=== PATIENT | female | born 1990 | race Caucasian/White ===

== ENCOUNTER 2019-04-02 08:12 | Emergency (ER) | payer MEDICAID ==
--- NOTE | 2019-04-02 09:01 | EDM.PDOC ---
ED HPI GENERAL MEDICAL PROBLEM - General Chief Complaint: General Stated Complaint: FEVER/8WKS Time Seen by Provider: 04/02/19 08:55 Source of Information: Reports: Patient History Limitations: Reports: No Limitations - History of Present Illness INITIAL COMMENTS - FREE TEXT/NARRATIVE: Patient is a 28-year-old female who is complaining of having fever with chills this been occurring q. evening at nighttime for the last 2 days. Patient had a temperature of 101 this morning. She denies any cough or shortness of breath symptoms. She denies any nausea vomiting or diarrhea. Patient does have a mild headache but denies any dysuria or hematuria. Patient states her urine is been clear in color recently. Both of her children at home also have flulike symptoms. She is currently 8 weeks and has been taking Tylenol for symptoms. She denies any rash or stiff neck. Duration: Day(s): (Days) Location: Reports: Head, Generalized Quality: Reports: Ache Severity: Mild Improves with: Reports: None Worsens with: Reports: None Associated Symptoms: Reports: No Other Symptoms Treatments PROVIDER NETWORK MANAGER: Reports: Acetaminophen Headache Pain Score (Numeric/FACES): 4 - Related Data Allergies Allergy/AdvReac Type Severity Reaction Status Date / Time No Known Allergies Allergy Verified 04/02/19 08:26 Home Meds: Home Meds Vit Calc,Iron,Folic [ Vitamins] 1 tab PO BEDTIME 11/16/15 [ History] Past Medical History - Past Health History Medical/Surgical History: Denies Medical/Surgical History HEENT History: Reports: None Cardiovascular History: Reports: None Respiratory History: Reports: None Gastrointestinal History: Reports: Gastritis Other Gastrointestinal History: Severe nausea Genitourinary History: Reports: STD, Other (See Below) Other Genitourinary History: Herpes SALES REPRESENTATIVE GROCERIES History: Reports: Musculoskeletal History: Reports: None Neurological History: Reports: None Psychiatric History: Reports: Anxiety Endocrine/Metabolic History: Reports: None Hematologic History: Reports: None Immunologic History: Reports: None Oncologic (Cancer) History: Reports: None Dermatologic History: Reports: None - Infectious Disease History Infectious Disease History: Reports: None - Past Surgical History Head Surgeries/Procedures: Reports: None Social & Family History - Family History Family Medical History: Noncontributory - Tobacco Use Smoking Status *Q: Never Smoker Second Hand Smoke Exposure: No - Caffeine Use Caffeine Use: Reports: Coffee, Soda - Recreational Drug Use Recreational Drug Use: No ED ROS GENERAL - Review of Systems Review Of Systems: Comprehensive ROS is negative, except as noted in HPI. Constitutional: Reports: Fever, Chills ED EXAM, GENERAL - Physical Exam Exam: See Below Free Text/Narrative:: Exam: See Below Exam Limited By: No Limitations Head: Atraumatic Neck: Normal Inspection. No: Carotid Bruit, Lymphadenopathy (R) Respiratory/Chest: No Respiratory Distress, Lungs Clear, Normal Breath Sounds, No Accessory Muscle Use. No: Chest Non-Tender Cardiovascular: Normal Peripheral Pulses, Regular Rate, Rhythm, No Edema, No JVD GI/Abdominal: Normal Bowel Sounds, Tender. No: Non-Tender, Splenomegaly Back Exam: Normal Inspection. No: CVA Tenderness (R) Extremities: Normal Inspection. No: No Pedal Edema Neurological: Alert, Oriented, Normal Cognition Psychiatric: Normal Affect Skin Exam: Warm Lymphatic: No Adenopathy Course - Vital Signs Text/Narrative:: Patient is positive for influenza B. Since she is on her third day of symptoms I am not starting her on Tamiflu. I am encouraging her to increase her fluids and continue with Tylenol as needed. He should follow-up with her PCP or OB/ PHOTOGRAPHIC AIDE for recheck this week. Last Recorded V/S: Last Vital Signs Temp 36.8 C 04/02/19 08:27 Pulse 110 H 04/02/19 08:27 Resp 15 04/02/19 08:27 BP 121/78 04/02/19 08:27 Pulse Ox 96 04/02/19 08:27 Departure - Departure Time of Disposition: 09:03 Disposition: Home, Self-Care 01 Condition: Good Clinical Impression: Influenza B - Discharge Information Referrals: Yonatan Stanley MD [Primary Care Provider] - Additional Instructions: Increased fluids and Tylenol as needed. Follow-up with PCP or SALES REPRESENTATIVE GROCERIES this week for recheck. Return to ER if worse. Sepsis Event Note - Evaluation Sepsis Screening Result: No Definite Risk - Focused Exam Vital Signs: Vital Signs Temp Pulse Resp BP Pulse Ox 04/02/19 08:27 36.8 C 110 H 15 121/78 96 Date Exam was Performed: 04/02/19 Time Exam was Performed: 08:55
[2019-04-02 09:21] VITALS: BP 108/63; PULSE 96
== END 2019-04-02 09:21 | disposition home or self-care (01) ==
LOC: MW.ED 08:12
DX: O99.511 Diseases of the respiratory system complicating pregnancy, first trimester (principal); J10.1 Influenza due to other identified influenza virus with other respiratory manifestations; Z3A.08 8 weeks gestation of pregnancy
CPT/HCPCS: 87804; 99282; 99284

== ENCOUNTER 2019-05-02 10:02 | Day surgery (SDC) | payer MEDICAID ==
[~2019-05-02 10:02] MED LIST: Lactated Ringers 1,000 ML IV SCH; Sodium Chloride 0.9% 10 ML SDV IV PRN; Sodium Chloride 0.9% 10 ML Syringe FLUSH PRN; Sodium Chloride 0.9% 2.5 ML Syringe FLUSH PRN
--- NOTE | 2019-05-02 10:37 | PCM.PREANE ---
Preanesthetic Assessment - Anesthesia/Transfusion/Family Hx Anesthesia History: Prior Anesthesia Without Reaction Family History of Anesthesia Reaction: No Transfusion History: No Prior Transfusion(s) Intubation History: Unknown - Review of Systems General: No Symptoms Pulmonary: No Symptoms Cardiovascular: No Symptoms Gastrointestinal: No Symptoms Neurological: No Symptoms Other: Reports: None - Physical Assessment Vital Signs: Last Vital Signs Temp 36.8 C 05/02/19 10:15 Pulse 79 05/02/19 10:15 Resp 15 05/02/19 10:15 BP 116/62 05/02/19 10:15 Pulse Ox 97 05/02/19 10:15 Height: 5 ft 4 in Weight: 63.957 kg ASA Class: 2 Mental Status: Alert & Oriented x3 Airway Class: Mallampati = 2 Dentition: Reports: Normal Dentition (lower retainer) Thyro-Mental Finger Breadths: 3 Mouth Opening Finger Breadths: 2 ROM/Head Extension: Full Lungs: Clear to Auscultation, Normal Respiratory Effort Cardiovascular: Regular Rate, Regular Rhythm - Lab Values: Laboratory Last Values Hgb 12.6 g/dL (12.0-16.0) 05/01/19 15:34 Hct 38.1 % (36.0-46.0) 05/01/19 15:34 Blood Type A POSITIVE 05/01/19 15:34 Antibody Screen NEGATIVE 05/01/19 15:34 - Allergies Allergies/Adverse Reactions: Allergies Allergy/AdvReac Type Severity Reaction Status Date / Time No Known Allergies Allergy Verified 04/28/19 09:40 - Blood Blood Available: No - Anesthesia Plan Pre-Op Medication Ordered: None - Acknowledgements Anesthesia Type Planned: General Anesthesia Pt an Appropriate Candidate for the Planned Anesthesia: Yes Alternatives and Risks of Anesthesia Discussed w Pt/Guardian: Yes Pt/Guardian Understands and Agrees with Anesthesia Plan: Yes PreAnesthesia Questionnaire - Past Health History Medical/Surgical History: Denies Medical/Surgical History HEENT History: Reports: Other (See Below) Other HEENT History: wears glasses/contacts, has "part" of a plastic retainer in her mouth Cardiovascular History: Reports: None Respiratory History: Reports: Other (See Below) Other Respiratory History: recent Influenza B Gastrointestinal History: Reports: Gastritis Other Gastrointestinal History: Severe nausea Genitourinary History: Reports: STD, Other (See Below) Other Genitourinary History: Herpes PHARMACOVIGILANCE SCIENTIST History: Reports: Musculoskeletal History: Reports: None Neurological History: Reports: Other (See Below) Other Neuro History: hx of motion sickness Psychiatric History: Reports: Anxiety, Depression Other Psychiatric History: not currently taking medication Endocrine/Metabolic History: Reports: None Hematologic History: Reports: None Immunologic History: Reports: None Oncologic (Cancer) History: Reports: None Dermatologic History: Reports: None - Infectious Disease History Infectious Disease History: Reports: None - Past Surgical History Head Surgeries/Procedures: Reports: None HEENT Surgical History: Reports: Oral Surgery Female Surgical History: Reports: Section (11/07), Cervical Cryotherapy () - SUBSTANCE USE Smoking Status *Q: Never Smoker Recreational Drug Use History: No - HOME MEDS Home Medications: Home Meds Vit Calc,Iron,Folic [ Vitamins] 1 tab PO BEDTIME 11/16/15 [ History] - CURRENT (IN HOUSE) MEDS Current Meds: Current Medications Lactated Ringer's (Ringers, Lactated) 1,000 mls @ 125 mls/hr IV ASDIRECTED DOMINICK Sodium Chloride (Saline Flush) 10 ml FLUSH ASDIRECTED PRN PRN Reason: Keep Vein Open Sodium Chloride (Saline Flush) 2.5 ml FLUSH ASDIRECTED PRN PRN Reason: Keep Vein Open Sodium Chloride (Normal Saline) 10 ml IV ASDIRECTED PRN PRN Reason: IV Use
--- NOTE | 2019-05-02 12:58 | PCM.OPNOTE ---
- General Post-Op/Procedure Note Date of Surgery/Procedure: 05/02/19 Operative Procedure(s): suction D&C Findings: uterus sounded to 8 cm, firm preop and postop. Scant tissue obtained Pre Op Diagnosis: incomplete spontaneous Post-Op Diagnosis: Same Anesthesia Technique: General LMA Primary Surgeon: Veronica Romero Anesthesia Provider: Katherine Jon Oxyacetylene Burner: Yuri Samuels Pathology: products of conception Fluid Replacement, Intraop: 1,000 EBL in mLs: 50 Complications: None Known Condition: Good
[2019-05-02] MEDS ORDERED: fentaNYL 100 MCG/2 ML SDV IVPUSH PRN (13:08)
--- NOTE | 2019-05-02 13:28 | PCM.POSTAN ---
POST ANESTHESIA ASSESSMENT - MENTAL STATUS Mental Status: Alert, Oriented - VITAL SIGNS Vital Signs: Last Vital Signs Temp 36.2 C 05/02/19 13:00 Pulse 86 05/02/19 13:20 Resp 15 05/02/19 13:20 BP 101/57 L 05/02/19 13:20 Pulse Ox 97 05/02/19 13:20 - RESPIRATORY Respiratory Status: Respiratory Rate WNL, Airway Patent, O2 Saturation Stable - CARDIOVASCULAR CV Status: Pulse Rate WNL, Blood Pressure Stable - GASTROINTESTINAL GI Status: No Symptoms - PAIN Pain Score: 0 - POST OP HYDRATION Hydration Status: Adequate & Stable - OBSERVATIONS Free Text/Narrative:: No anesthesia problems
--- NOTE | 2019-05-02 14:07 | PCM48HPAN ---
Post Anesthesia Note - EVALUATION WITHIN 48HRS OF ANESTHETIC Vital Signs in Normal Range: Yes Patient Participated in Evaluation: Yes Respiratory Function Stable: Yes Airway Patent: Yes Cardiovascular Function Stable: Yes Hydration Status Stable: Yes Pain Control Satisfactory: Yes Nausea and Vomiting Control Satisfactory: Yes Mental Status Recovered: Yes Vital Signs: Last Vital Signs Temp 36.2 C 05/02/19 13:00 Pulse 86 05/02/19 13:20 Resp 15 05/02/19 13:20 BP 101/57 L 05/02/19 13:20 Pulse Ox 97 05/02/19 13:20 - COMMENTS/OBSERVATIONS Free Text/Narrative:: No anesthesia problems
[2019-05-02 14:09] VITALS: BP 114/67; PULSE 77
--- NOTE | 2019-05-02 18:10 | OR ---
SURGEON: Veronica Romero M.D. DATE OF PROCEDURE: 05/02/2019 PREOPERATIVE DIAGNOSIS: Incomplete spontaneous . POSTOPERATIVE DIAGNOSIS: Incomplete spontaneous . PROCEDURE: Suction dilatation and curettage. PRIMARY SURGEON: Veronica Romero MD. ANESTHESIA: General LMA. ESTIMATED BLOOD LOSS: 50 mL. FLUIDS: 1000 mL of crystalloid. FINDINGS: Preoperatively, uterus anteverted, 8-week size, sounds to 8 cm. Postoperatively, same. PATHOLOGY SPECIMEN: Products of conception. COMPLICATIONS: None known. DISPOSITION: Stable to Recovery. BRIEF HISTORY: This is a 28-year-old female. She has had a falling hCG with intermittent bleeding and cramping. She has been given Cytotec in the past. However, ultrasound shows retained products of conception, a small amount. Also, hCG level is not falling as rapidly as anticipated. Therefore, after expectant management for D and C followed by Cytotec with retained products of conception, she does desire to proceed with suction D and C with risks discussed including bleeding, infection, uterine perforation with injury to surrounding organs, risk of Asherman syndrome. Understanding all these risks, she does desire to proceed. DESCRIPTION OF PROCEDURE: With the patient in dorsal lithotomy position under adequate general endotracheal anesthesia, the perineum and vagina were prepped with Betadine and draped in the usual fashion for vaginal surgery. SCDs were in place. The bladder had been drained with a red Johnson catheter. An appropriate time-out was held. Bimanual examination was performed with findings as noted above. Speculum was placed in the vagina. The anterior lip of the cervix was grasped with an Allis clamp. The uterus was sounded to 8 cm. The cervix was dilated to an 8 mm Hegar dilator and an 8 mm straight suction curette was placed to the uterine fundus and repetitively with continuous turning retracted from the fundus. On initial pass, there was a small amount of tissue obtained. After that, no further tissue was obtained. Sharp curettage was then performed to the 12, 3, and 6 o'clock position. There was good uterine cry on all surfaces. No tissue was obtained with the curette. Additional passes were taken with the suction cannula with no further tissue and minimal bleeding. Final sponge, needle, and instrument counts were reported as correct. All the instruments had been removed from the vagina, and the patient was transferred to Recovery in good condition. DRAGAN / SAPPHIRE /[id number]
== END 2019-05-02 14:10 | disposition home or self-care (01) ==
LOC: MW.SDS 10:02
PROVIDERS: ATTEND Obstetrics & Gynecology
DX: O03.4 Incomplete spontaneous abortion without complication (principal); F32.9 Major depressive disorder, single episode, unspecified
CPT/HCPCS: 36415; 59812; 85014; 85018; 86850; 86900; 86901; 88305; J7120; 01965

== ENCOUNTER 2020-03-08 13:02 | Inpatient (IN) | payer MEDICAID ==
[2020-03-08] MEDS ORDERED: Citric Acid/Sodium Citrate Solution 30 ML Cup PO ONE (13:27)
[2020-03-08] MEDS ORDERED: Sodium Chloride 0.9% 10 ML SDV IV PRN (13:27)
[2020-03-08] MEDS ORDERED: Sodium Chloride 0.9% 2.5 ML Syringe FLUSH PRN (13:27)
[2020-03-08] MEDS ORDERED: ceFAZolin 2 GM in Premix Bag 1 BAG IV ONE (13:27)
[2020-03-08] MEDS ORDERED: Sodium Chloride 0.9% 10 ML Syringe FLUSH PRN (13:27)
[2020-03-08] MEDS ORDERED: Oxytocin/0.9 % Sodium Chloride 30 UNIT/500 ML BAG IV SCH (13:30)
[2020-03-08] MEDS: Lactated Ringers 1,000 ML IV SCH ×4 (13:30→23:23)
[2020-03-08] MEDS ORDERED: Oxytocin 10 Units/1 ML SDV ONE (14:46)
[2020-03-08] MEDS ORDERED: Phenylephrine 1% 10 MG/ML SDV ONE (14:46)
[2020-03-08] MEDS ORDERED: Ondansetron 4 MG/2 ML SDV ONE (14:46)
[2020-03-08] MEDS ORDERED: Morphine PF 10 MG/10 ML SDV ONE (14:46)
[2020-03-08] MEDS ORDERED: Ketorolac 30 MG/ML SDV ONE (14:46)
[2020-03-08] MEDS ORDERED: Acetaminophen/oxyCODONE 325-5 MG Tab PO PRN ×2 (15:35→16:47)
[2020-03-08] MEDS ORDERED: diphenhydrAMINE 50 MG/ML SDV IVPUSH PRN ×2 (15:35→16:47)
[2020-03-08] MEDS ORDERED: Naloxone 0.4 MG/ML Syringe IVPUSH PRN (15:35)
[2020-03-08] MEDS ORDERED: fentaNYL 100 MCG/2 ML SDV IVPUSH PRN (15:35)
[2020-03-08] MEDS ORDERED: Ondansetron 4 MG/2 ML SDV IVPUSH PRN (15:35)
[2020-03-08] MEDS ORDERED: Octyl 2-Cyanoacrylate 1 Tube ONE (15:45)
[2020-03-08] MEDS ORDERED: Methylergonovine 0.2 MG/1 ML Amp IM PRN (16:47)
[2020-03-08] MEDS ORDERED: Misoprostol 200 MCG Tab RECTAL PRN (16:47)
[2020-03-08] MEDS ORDERED: Bisacodyl 10 MG Supp RECTAL PRN (16:47)
[2020-03-08] MEDS ORDERED: Tranexamic Acid 1,000 MG in Sodium Chloride 0.9% 100 ML IV PRN (16:47)
[2020-03-08] MEDS ORDERED: Oxytocin 10 Units/1 ML SDV IM PRN (16:47)
[2020-03-08] MEDS ORDERED: Lanolin 100% Cream 7 GM Tube TOP PRN (16:47)
--- NOTE | 2020-03-08 16:51 | PCM.OPNOTE ---
- General Post-Op/Procedure Note Date of Surgery/Procedure: 03/08/20 Operative Procedure(s): repeat low transverse Findings: Liveborn male 8/8 weight, normal pelvis. Pre Op Diagnosis: 40 weeks, previously , declines VTOL, positive Covid by PCR Post-Op Diagnosis: Same Anesthesia Technique: Spinal Primary Surgeon: Veronica Romero Anesthesia Provider: Lashon Palmer Economic Adviser: Abiodun Milner Pathology: none Fluid Replacement, Intraop: 900 EBL in mLs: 500 Complications: None Known. Condition: Good Free Text/Narrative:: Intake & Output 03/08/20 03/08/20 03/08/20 06:59 14:59 22:59 Output Total 150 Balance -150
[2020-03-08] MEDS ORDERED: Oxytocin/Lactated Ringers 30 UNIT/500 ML BAG IV SCH (17:00)
--- NOTE | 2020-03-08 17:33 | OR ---
SURGEON: Veronica Romero M.D. DATE OF PROCEDURE: 03/08/2020 PREOPERATIVE DIAGNOSES: A 40 plus week intrauterine , prior delivery, and declines vaginal trial of labor. POSTOPERATIVE DIAGNOSES: A 40 plus week intrauterine , prior delivery, and declines vaginal trial of labor. PROCEDURE: Repeat low transverse section. ANESTHESIA: Spinal. ESTIMATED BLOOD LOSS: 500 mL. FLUIDS: 900 mL of crystalloid. FINDINGS: Liveborn male, scores of 8 and 8. Weight is pending at the time of dictation. Normal-appearing uterus, tubes, and ovaries. COMPLICATIONS: None known. DISPOSITION: Mother and baby are in LDR in good condition. BRIEF HISTORY: This is a 29-year-old female. She is G3, P2. She has had prior complicated pregnancies. First complicated by vaginal delivery with the baby with herpes encephalitis. Second was an urgent due to distress, and she now presented with her third desiring vaginal trial of labor. However, her prior 2 deliveries were at 37 weeks and both babies were under 7 pounds. She has had prodromal labor symptoms, has presented to Labor and Delivery approximately 4 times. She has progressed to 3 cm and despite presenting routinely for painful contractions, she has not progressed beyond 3 cm. The head is not engaged in the pelvis and she is occiput posterior. After discussion of options at this point, she does desire to proceed with a repeat low transverse section with risks discussed including bleeding; infection; injury to bowel, bladder, blood vessels, or other organs; risk of thromboembolic event; and risk of anesthesia. Understanding all these risks, she does desire to proceed. DESCRIPTION OF PROCEDURE: With the patient in left tilt position, under adequate spinal analgesia, the abdomen was prepped with chlorhexidine and draped in usual fashion for abdominal surgery. SCDs were in place. Wayne catheter had been placed, and an appropriate time-out was held. She received 2 g of Ancef IV. After documentation of adequate analgesia, the prior cicatrix was excised. The incision was carried through the subcutaneous tissue to the fascia, which was scored transversely in the midline. The fascial incision was extended laterally using curved Gamble scissors. The fascia was elevated from the underlying rectus muscle using sharp and blunt dissection. The rectus muscles were bluntly in the midline. A finger was placed into the peritoneal cavity. There were no adhesions anteriorly. The incision was extended with blunt dissection. The Etienne O retractor was placed. The visceral peritoneum over the lower uterine segment was incised, and an adequate bladder flap was developed. A transverse curvilinear incision was made over the lower uterine segment with a scalpel. A finger was used to enter the amniotic cavity. Clear fluid was noted. The incision was extended transversely using cephalad and caudad traction. The head was delivered via the uterine incision with subsequent delivery of the 's shoulders and body without any difficulty. The infant was bulb suctioned by nose and mouth, and after one minute, the cord was doubly clamped and cut. The was a liveborn male, scores of 8 and 8, and weight is pending. The was given to the nurse in attendance at delivery. Cord blood was collected for cord ABGs as well as routine cord blood sampling. Pitocin was initiated after delivery of the to assist with delivery of the placenta and uterine contraction. The placenta was removed by manual extraction. The uterus was cleaned with a dry laparotomy tape. The uterine incision was closed with a running locked suture of 0 Polysorb followed by an imbricating layer of 0 Polysorb. The paracolic gutters were cleaned as well as posterior cul-de-sac. Tubes and ovaries were inspected and were normal. The incision was inspected and was hemostatic. The Etienne O retractor was removed. Final inspection of the incision confirmed hemostasis. The rectus muscles were loosely approximated in the midline using a running mattress suture of 0 Polysorb. Posterior aspect of the fascia was inspected, it was hemostatic. The fascial incision was closed with a running suture of 0 Polysorb. Subcutaneous tissue was irrigated. Any areas of bleeding that were noted were cauterized. The skin was closed with a running subcuticular suture of 3-0 Monocryl followed by Dermabond. Final sponge, needle, and instrument counts were reported as correct. There were no complications. Patient and baby were transferred to Recovery in good condition. DRAGAN / SAPPHIRE /[id number]
[2020-03-08] MEDS: Nalbuphine 10 MG/1 ML Vial IVPUSH PRN ×2 (17:51→22:06)
[2020-03-08] MEDS: Ondansetron 4 MG/2 ML SDV IVPUSH PRN ×2 (18:05→22:06)
[2020-03-08] MEDS: Ketorolac 30 MG/ML SDV IVPUSH SCH (22:05)
[2020-03-08] MEDS: Docusate Sodium 100 MG Cap PO SCH (22:05)
[2020-03-09] MEDS: Ketorolac 30 MG/ML SDV IVPUSH SCH ×3 (04:04→16:39)
[2020-03-09] MEDS: Nalbuphine 10 MG/1 ML Vial IVPUSH PRN ×2 (08:44→15:03)
[2020-03-09] MEDS: Docusate Sodium 100 MG Cap PO SCH ×2 (08:44→21:26)
--- NOTE | 2020-03-09 09:22 | PCM.PNPP ---
- General Info Date of Service: 03/09/20 Admission Dx/Problem (Free Text): , repeat lower transverse section Subjective Update: Patient resting comfortably in bed. Ambulating and voiding without difficulty. Has noted increased nausea this AM, requesting antiemetic. Has tolerate PO diet overall. Pain well controlled. Scant vaginal bleeding. and pumping, awaiting milk supply. Denies fever/chills, SOA, CP or cough. - General Info Date of Service: 03/09/20 - Patient Data Vital Signs - Most Recent: Last Vital Signs Temp 99.5 F 03/09/20 04:00 Pulse 91 03/09/20 06:51 Resp 16 03/09/20 06:51 BP 138/66 03/09/20 04:00 Pulse Ox 93 L 03/09/20 06:51 Weight - Most Recent: 179 lb I&O - Last 24 Hours: Intake & Output 03/08/20 03/09/20 03/09/20 22:59 06:59 14:59 Intake Total 900 Output Total 300 1425 Balance 600 -1425 Lab Results - Last 24 Hours: Laboratory Results - last 24 hr 03/08/20 03/08/20 03/09/20 Range/Units 14:15 14:15 06:15 WBC 9.16 (4.0-11.0) K/uL RBC 3.39 L (4.30-5.90) M/uL Hgb 10.7 L 10.1 L (12.0-16.0) g/dL Hct 32.3 L 30.6 L (36.0-46.0) % MCV 95.3 (80.0-98.0) fL MCH 31.6 (27.0-32.0) pg MCHC 33.1 (31.0-37.0) g/dL RDW Std Deviation 52.6 (28.0-62.0) fl RDW Coeff of Olesya 15 (11.0-15.0) % Plt Count 185 (150-400) K/uL MPV 9.40 (7.40-12.00) fL Nucleated RBC % 0.0 /100WBC Nucleated RBCs # 0 K/uL Blood Type A POSITIVE Antibody Screen NEGATIVE Med Orders - Current: Current Medications Bisacodyl (Dulcolax) 10 mg RECTAL ONETIME PRN PRN Reason: Constipation Diphenhydramine HCl (Benadryl) 25 mg IVPUSH Q4H PRN PRN Reason: Itching Stop: 03/09/20 15:35 Diphenhydramine HCl (Benadryl) 25 mg IVPUSH Q6H PRN PRN Reason: Itching or Nausea Docusate Sodium (Colace) 100 mg PO BID [facility] Last Admin: 03/09/20 08:44 Dose: 100 mg Documented by: Emollient Ointment (Lansinoh Hpa) 0 gm TOP ASDIRECTED PRN PRN Reason: Sore Nipples Fentanyl (Sublimaze) 50 mcg IVPUSH Q1H PRN PRN Reason: Pain (severe 7-10) Lactated Ringer's (Ringers, Lactated) 1,000 mls @ 125 mls/hr IV ASDIRECTED [facility] Last Admin: 03/08/20 23:23 Dose: 125 mls/hr Documented by: Oxytocin/Lactated Ringer's (Pitocin In Lr 30 Units/500 Ml) 30 unit in 500 mls @ 999 mls/hr IV TITRATE [facility]; Protocol Tranexamic Acid 1,000 mg/ (Sodium Chloride) 110 mls @ 660 mls/hr IV ONETIME PRN PRN Reason: Bleeding Ibuprofen (Motrin) 800 mg PO Q8H PRN PRN Reason: mild pain or fever Ketorolac Tromethamine (Toradol) 30 mg IVPUSH Q6H [facility] Stop: 03/09/20 17:01 Last Admin: 03/09/20 04:04 Dose: 30 mg Documented by: Methylergonovine Maleate (Methergine) 0.2 mg IM ONETIME PRN PRN Reason: Excessive Vaginal Bleeding Misoprostol (Cytotec) 1,000 mcg RECTAL ONETIME PRN PRN Reason: excessive bleeding Nalbuphine HCl (Nubain) 5 mg IVPUSH ASDIRECTED PRN PRN Reason: Itching Last Admin: 03/09/20 08:44 Dose: 5 mg Documented by: Naloxone HCl (Narcan) 0.1 mg IVPUSH ONETIME PRN PRN Reason: Respiratory Depression Stop: 03/09/20 15:35 Ondansetron HCl (Zofran) 4 mg IVPUSH Q6H PRN PRN Reason: Nausea Ondansetron HCl (Zofran) 4 mg IVPUSH Q4H PRN PRN Reason: Nausea/Vomiting Last Admin: 03/08/20 22:06 Dose: 4 mg Documented by: Oxycodone/Acetaminophen (Percocet 325-5 Mg) 2 tab PO Q6H PRN PRN Reason: Pain (moderate 4-6) Oxycodone/Acetaminophen (Percocet 325-5 Mg) 1 tab PO Q4H PRN PRN Reason: Pain (moderate 4-6) Oxycodone/Acetaminophen (Percocet 325-5 Mg) 2 tab PO Q4H PRN PRN Reason: Pain (moderate 4-6) Oxytocin (Pitocin) 10 unit IM ASDIRECTED PRN PRN Reason: Excessive Vaginal Bleeding Discontinued Medications Citric Acid/Sodium Citrate (Bicitra Solution) 30 ml PO ONETIME ONE Stop: 03/08/20 13:28 Oxytocin/Sodium Chloride (Oxytocin 30 Unit/500 Ml-Ns) 30 unit in 500 mls @ 250 mls/hr IV TITRATE [facility] Cefazolin Sodium/Dextrose 2 gm (/ Premix) 50 mls @ 100 mls/hr IV ONETIME ONE Stop: 03/08/20 13:56 Lactated Ringer's (Ringers, Lactated) 1,000 mls @ 500 mls/hr IV BOLUS DOMINICK Last Admin: 03/08/20 14:45 Dose: 999 mls/hr Documented by: Ketorolac Tromethamine (Toradol) Confirm Administered Dose 30 mg .ROUTE .STK-MED ONE Stop: 03/08/20 14:47 Morphine Sulfate (Duramorph Pf) Confirm Administered Dose 10 mg .ROUTE .STK-MED ONE Stop: 03/08/20 14:47 Octyl Cyanoacrylate (Dermabond Advance) Confirm Administered Dose 1 applic .ROUTE .STK-MED ONE Stop: 03/08/20 15:46 Ondansetron HCl (Zofran) Confirm Administered Dose 4 mg .ROUTE .STK-MED ONE Stop: 03/08/20 14:47 Oxytocin (Pitocin) Confirm Administered Dose 20 unit .ROUTE .STK-MED ONE Stop: 03/08/20 14:47 Phenylephrine HCl (Kameron-Synephrine) Confirm Administered Dose 10 mg .ROUTE .STK- MED ONE Stop: 03/08/20 14:47 Sodium Chloride (Saline Flush) 10 ml FLUSH ASDIRECTED PRN PRN Reason: Keep Vein Open Sodium Chloride (Saline Flush) 2.5 ml FLUSH ASDIRECTED PRN PRN Reason: Keep Vein Open Sodium Chloride (Normal Saline) 10 ml IV ASDIRECTED PRN PRN Reason: IV Use - Interaction Disposition, : [place] in Room with Family Infant Interaction: Holding Infant Infant Feeding: Attempted ; Nursed Fair/Poor, Other (see below) (pumping) Support Person: Significant Other - Recovery Exam Fundal Tone: Firm Fundal Level: 1 Fingerbreadths Below Umbilicus Fundal Placement: Midline Lochia Amount: Scant Lochia Color: Rubra/Red Perineum Description: Intact, Minimal Bruising/Swelling - Exam General: Alert Lungs: Normal Respiratory Effort Cardiovascular: Regular Rate GI/Abdominal Exam: Soft, Non-Tender Extremities: Normal Inspection, Non-Tender, Pedal Edema (trace) Skin: Warm, Dry, Intact Wound/Incisions: Dressing Dry and Intact Neurological: No New Focal Deficit Psy/Mental Status: Normal Mood - Problem List Review Problem List Initiated/Reviewed/Updated: Yes - Assessment Assessment:: 29 year old G3 now P3 female POD #1 s/p repeat lower transverse section - Plan Plan:: Routine /postoperative cares * VSS, afebrile * Urine output adequate overnight, price discontinued this Am * Encourage fluid intake and ambulation today * Zofran 4mg PRN nausea * Regular diet as tolerated * , nursing assisted as needed COVID-19 positive * VSS, afebrile * Asymptomatic * Will continue to monitor symptoms closely while inpatient * Droplet precautions Dispo: stable. Continue cares today. Anticipate discharge POD 2 or 3.
--- NOTE | 2020-03-09 09:41 | PCM48HPAN ---
Post Anesthesia Note - EVALUATION WITHIN 48HRS OF ANESTHETIC Vital Signs in Normal Range: Yes Patient Participated in Evaluation: Yes Respiratory Function Stable: Yes Airway Patent: Yes Cardiovascular Function Stable: Yes Hydration Status Stable: Yes Pain Control Satisfactory: Yes Nausea and Vomiting Control Satisfactory: Yes Mental Status Recovered: Yes Vital Signs: Last Vital Signs Temp 36.6 C 03/09/20 08:30 Pulse 97 03/09/20 09:00 Resp 16 03/09/20 09:00 BP 113/74 03/09/20 08:30 Pulse Ox 100 03/09/20 09:00
[2020-03-09] MEDS: Ondansetron 4 MG/2 ML SDV IVPUSH PRN (10:18)
[2020-03-09] MEDS ORDERED: Ibuprofen 800 MG Tab PO PRN (23:00)
[2020-03-10] MEDS: Acetaminophen/oxyCODONE 325-5 MG Tab PO PRN ×2 (02:03→10:04)
[2020-03-10 09:01] VITALS: BP 121/76; PULSE 84
--- NOTE | 2020-03-10 09:49 | PCM.PNPP ---
- General Info Date of Service: 03/10/20 Admission Dx/Problem (Free Text): , repeat lower transverse section Subjective Update: Patient ambulating about room during rounds, plans to shower this morning. Ambulating and voiding without difficulty. Has tolerate PO diet overall, nausea resolved. Pain well controlled. Scant vaginal bleeding. and pumping, going well. Denies fever/chills, SOA, CP or cough. - General Info Date of Service: 03/10/20 - Patient Data Vital Signs - Most Recent: Last Vital Signs Temp 97.6 F 03/10/20 07:45 Pulse 84 03/10/20 07:45 Resp 14 03/10/20 07:45 BP 121/76 03/10/20 07:45 Pulse Ox 96 03/10/20 07:45 Weight - Most Recent: 179 lb Med Orders - Current: Current Medications Bisacodyl (Dulcolax) 10 mg RECTAL ONETIME PRN PRN Reason: Constipation Diphenhydramine HCl (Benadryl) 25 mg IVPUSH Q6H PRN PRN Reason: Itching or Nausea Docusate Sodium (Colace) 100 mg PO BID [facility] Last Admin: 03/09/20 21:26 Dose: 100 mg Documented by: Emollient Ointment (Lansinoh Hpa) 0 gm TOP ASDIRECTED PRN PRN Reason: Sore Nipples Fentanyl (Sublimaze) 50 mcg IVPUSH Q1H PRN PRN Reason: Pain (severe 7-10) Lactated Ringer's (Ringers, Lactated) 1,000 mls @ 125 mls/hr IV ASDIRECTED [facility] Last Admin: 03/08/20 23:23 Dose: 125 mls/hr Documented by: Oxytocin/Lactated Ringer's (Pitocin In Lr 30 Units/500 Ml) 30 unit in 500 mls @ 999 mls/hr IV TITRATE DOMINICK; Protocol Tranexamic Acid 1,000 mg/ (Sodium Chloride) 110 mls @ 660 mls/hr IV ONETIME PRN PRN Reason: Bleeding Ibuprofen (Motrin) 800 mg PO Q8H PRN PRN Reason: mild pain or fever Last Admin: 03/10/20 06:13 Dose: 800 mg Documented by: Methylergonovine Maleate (Methergine) 0.2 mg IM ONETIME PRN PRN Reason: Excessive Vaginal Bleeding Misoprostol (Cytotec) 1,000 mcg RECTAL ONETIME PRN PRN Reason: excessive bleeding Nalbuphine HCl (Nubain) 5 mg IVPUSH ASDIRECTED PRN PRN Reason: Itching Last Admin: 03/09/20 15:03 Dose: 5 mg Documented by: Ondansetron HCl (Zofran) 4 mg IVPUSH Q6H PRN PRN Reason: Nausea Ondansetron HCl (Zofran) 4 mg IVPUSH Q4H PRN PRN Reason: Nausea/Vomiting Last Admin: 03/09/20 10:18 Dose: 4 mg Documented by: Oxycodone/Acetaminophen (Percocet 325-5 Mg) 2 tab PO Q6H PRN PRN Reason: Pain (moderate 4-6) Last Admin: 03/09/20 21:27 Dose: 2 tab Documented by: Oxycodone/Acetaminophen (Percocet 325-5 Mg) 1 tab PO Q4H PRN PRN Reason: Pain (moderate 4-6) Oxycodone/Acetaminophen (Percocet 325-5 Mg) 2 tab PO Q4H PRN PRN Reason: Pain (moderate 4-6) Last Admin: 03/10/20 02:03 Dose: 2 tab Documented by: Oxytocin (Pitocin) 10 unit IM ASDIRECTED PRN PRN Reason: Excessive Vaginal Bleeding Discontinued Medications Citric Acid/Sodium Citrate (Bicitra Solution) 30 ml PO ONETIME ONE Stop: 03/08/20 13:28 Diphenhydramine HCl (Benadryl) 25 mg IVPUSH Q4H PRN PRN Reason: Itching Stop: 03/09/20 15:35 Oxytocin/Sodium Chloride (Oxytocin 30 Unit/500 Ml-Ns) 30 unit in 500 mls @ 250 mls/hr IV TITRATE DOMINICK Cefazolin Sodium/Dextrose 2 gm (/ Premix) 50 mls @ 100 mls/hr IV ONETIME ONE Stop: 03/08/20 13:56 Lactated Ringer's (Ringers, Lactated) 1,000 mls @ 500 mls/hr IV BOLUS DOMINICK Last Admin: 03/08/20 14:45 Dose: 999 mls/hr Documented by: Ketorolac Tromethamine (Toradol) Confirm Administered Dose 30 mg .ROUTE .STK-MED ONE Stop: 03/08/20 14:47 Ketorolac Tromethamine (Toradol) 30 mg IVPUSH Q6H [facility]INICK Stop: 03/09/20 17:01 Last Admin: 03/09/20 16:39 Dose: 30 mg Documented by: Morphine Sulfate (Duramorph Pf) Confirm Administered Dose 10 mg .ROUTE .STK-MED ONE Stop: 03/08/20 14:47 Naloxone HCl (Narcan) 0.1 mg IVPUSH ONETIME PRN PRN Reason: Respiratory Depression Stop: 03/09/20 15:35 Octyl Cyanoacrylate (Dermabond Advance) Confirm Administered Dose 1 applic .ROU TE .STK-MED ONE Stop: 03/08/20 15:46 Ondansetron HCl (Zofran) Confirm Administered Dose 4 mg .ROUTE .STK-MED ONE Stop: 03/08/20 14:47 Oxytocin (Pitocin) Confirm Administered Dose 20 unit .ROUTE .STK-MED ONE Stop: 03/08/20 14:47 Phenylephrine HCl (Kameron-Synephrine) Confirm Administered Dose 10 mg .ROUTE .STK- MED ONE Stop: 03/08/20 14:47 Sodium Chloride (Saline Flush) 10 ml FLUSH ASDIRECTED PRN PRN Reason: Keep Vein Open Sodium Chloride (Saline Flush) 2.5 ml FLUSH ASDIRECTED PRN PRN Reason: Keep Vein Open Sodium Chloride (Normal Saline) 10 ml IV ASDIRECTED PRN PRN Reason: IV Use - Interaction Infant Disposition, : at Bedside Feeding: Breastfed ; Nursed Well, Other (see below) (pumping) Support Person: Significant Other - Recovery Exam Fundal Tone: Firm Fundal Level: 1 Fingerbreadths Below Umbilicus Fundal Placement: Midline Lochia Amount: Scant Lochia Color: Rubra/Red Perineum Description: Intact, Minimal Bruising/Swelling Episiotomy/Laceration: None Bladder Status: Nonpalpable, Voiding Urinary Elimination: Voided Other Urinary Elimination, : due to void - Exam General: Alert Lungs: Normal Respiratory Effort Cardiovascular: Regular Rate GI/Abdominal Exam: Soft, Non-Tender Extremities: Normal Range of Motion, Non-Tender, No Pedal Edema Skin: Warm, Dry, Intact Wound/Incisions: Dressing Dry and Intact Psy/Mental Status: Normal Mood - Problem List Review Problem List Initiated/Reviewed/Updated: Yes - Assessment Assessment:: 29 year old G3 now P3 female POD #2 s/p repeat lower transverse section - Plan Plan:: Routine /postoperative cares * VSS, afebrile * Encourage fluid intake and ambulation * Zofran 4mg PRN nausea * Regular diet as tolerated * , nursing assisted as needed COVID-19 positive * VSS, afebrile * Asymptomatic * Will continue to monitor symptoms closely while inpatient * Droplet precautions Dispo: stable. Continue cares. Anticipate discharge today pending maternal/ status.
[2020-03-10] MEDS: Docusate Sodium 100 MG Cap PO SCH (10:04)
== END 2020-03-10 12:08 | disposition home or self-care (01) | DRG 786 ==
LOC: MW.OB 13:02
PROVIDERS: ADMIT Obstetrics & Gynecology; ATTEND Obstetrics & Gynecology
PROC: 10D00Z1 Extraction of Products of Conception, Low, Open Approach (ICD-10-PCS; principal; 2020-03-08)
DX: O34.211 Maternal care for low transverse scar from previous cesarean delivery (principal); U07.1 COVID-19; O98.52 Other viral diseases complicating childbirth; Z37.0 Single live birth; Z3A.40 40 weeks gestation of pregnancy
CPT/HCPCS: 01961; 36415; 59025; 85014; 85018; 85027; 86592; 86850; 86900; 86901; A9270-GY; J1885; J2270; J2300; J2370; J2405; J2590; J7120